=== PATIENT | female | born 1990 | race Caucasian/White ===

== ENCOUNTER 2019-05-16 19:30 | Inpatient (IN) | payer BC ==
[2019-05-19] MEDS ORDERED: Lidocaine 1% (PF) 30 ML VIAL SC PRN (18:56)
[2019-05-19] MEDS ORDERED: Ibuprofen 800 MG TAB PO PRN (18:56)
[2019-05-19] MEDS ORDERED: HYDROcodone/Acetaminophen 5/325 mg Tablet PO PRN ×2 (18:56)
[2019-05-19] MEDS ORDERED: Acetaminophen 500 MG TAB PO PRN (18:56)
[2019-05-19] MEDS ORDERED: Promethazine HCl 25 MG/ML VIAL IM PRN (18:56)
[2019-05-19] MEDS ORDERED: Butorphanol Tartrate 1 MG/ML VIAL SLOW IVP PRN (18:56)
[2019-05-19] MEDS ORDERED: Diphenoxylate HCl/Atropine Tablet PO PRN ×2 (18:56)
[2019-05-19] MEDS ORDERED: NS / Oxytocin 40 units/1000ml 1,000 ML IV PRN (18:56)
[2019-05-19] MEDS ORDERED: hydrALAZINE 20 MG/ML VIAL SLOW IVP PRN (18:56)
[2019-05-19] MEDS ORDERED: Carboprost 250 MCG/ML AMP IM PRN (18:56)
[2019-05-19] MEDS ORDERED: Ondansetron PF 4 MG/2 ML Vial IVP PRN (18:56)
[2019-05-19] MEDS ORDERED: Docusate 100 MG CAP PO PRN (18:56)
[2019-05-19] MEDS ORDERED: Misoprostol 200 MCG TAB PR PRN (18:56)
[2019-05-19] MEDS ORDERED: Methylergonovine 0.2 MG/ML VIAL IM PRN (18:56)
[2019-05-19] MEDS ORDERED: Zolpidem Tartrate 5 MG TAB PO PRN (18:56)
[2019-05-19] MEDS ORDERED: NS w/ Oxytocin 10 units 500 ML IV SCH ×2 (19:00)
--- NOTE | 2019-05-19 19:01 | PDOC.LDHP ---
Labor and Delivery H&P HPI: 28 y/o at 39 and 1/7 weeks presents for term medical induction of labor with dx of Oligohydramnios and new diagnosis of GHTN. Current gestational age (weeks): 39 Due date: 05/25/19 Grav: 1 Para: 0 Current complications: gestational hypertension, other Abnormal US findings: Yes (Oligohydramnios) Current medications: pre-jose vitamins Previous surgical history: none Social history: none - Physical Exam Vital signs reviewed and normal: yes General: NAD, resting Heart: RRR Lungs: nonlabored breathing Abdomen: NTTP Extremeties: no edema FHT: category 1 - Assessment L&D Assessment: medically indicated induction - Plan Plan: admit to L&D, cervical ripening
[2019-05-20 06:31] VITALS: BMI 25.4
[2019-05-20] MEDS: Lactated Ringer's 1,000 ML IV SCH ×4 (06:35→17:21)
[2019-05-20] MEDS ORDERED: FLU VACC QS2019-20(6MOS UP)/PF 60 MCG/0.5 ML SYRINGE IM ONE (06:45)
[2019-05-20 06:48] LABS: Hemoglobin 12.3 g/dL (12.0-16.0); Mean Corpuscular HGB CONC 34.2 g/dL (32.0-36.0); Mean Corpuscular Hemoglobin 32.2 pg (27.0-31.0); Mean Corpuscular Volume 94.3 fL (78.0-98.0); Mean Platelet Volume 8.7 fL (7.4-10.4); Platelet Count 196 thou/uL (130-400); RBC Distribution Width 11.8 % (11.5-14.5); Red Blood Cell (RBC) Count 3.81 mill/uL (4.20-5.40); White Blood Cell (WBC) Count 6.9 thou/uL (4.8-10.8)
[2019-05-20] MEDS: Misoprostol 100 MCG TAB VAG SCH ×3 (06:50→15:57)
[2019-05-20 07:34] LABS: Syphilis Antibody Nonreactive (Nonreactive); Syphilis Antibody Index 0.06 S/CO (<1.00 Non-Reactive)
[2019-05-20 07:51] LABS: HBSAg Index 0.16 S/CO (0-0.99); Hep B Surf Ag Non-Reactive S/CO (NonReactive)
[2019-05-20] MEDS ORDERED: Fentanyl 4 mcg/Bup 0.1% Cadd 100 ML ONE (12:13)
[2019-05-20] MEDS ORDERED: Promethazine HCl 25 MG/ML VIAL IM PRN ×5 (13:13→23:00)
[2019-05-20] MEDS ORDERED: ePHEDrine/0.9% NaCl/PF SYRINGE 50 mg/10 ml SLOW IVP PRN (13:13)
[2019-05-20] MEDS ORDERED: Lactated Ringer's 500 ML IV PRN (13:13)
[2019-05-20] MEDS ORDERED: diphenhydrAMINE 50 MG/ML VIAL IVP PRN ×4 (13:13→21:17)
[2019-05-20] MEDS ORDERED: Ondansetron PF 4 MG/2 ML Vial IVP PRN ×4 (13:13→23:00)
[2019-05-20] MEDS ORDERED: Naloxone HCl 0.4 mg/ml Vial IVP PRN ×8 (13:13→21:17)
[2019-05-20] MEDS ORDERED: Acetaminophen 325 MG TAB PO PRN (13:13)
[2019-05-20] MEDS ORDERED: Fentanyl 4 mcg/Bupivacaine 0.1% Cassette 100 ML EPIDURAL SCH (13:15)
[2019-05-20] MEDS ORDERED: Communication Order-Pharmacy FS SCH ×4 (13:15→21:30)
[2019-05-20] MEDS: Terbutaline Sulfate 1 MG/ML VIAL ONE (14:40)
--- NOTE | 2019-05-20 14:44 | PDOC.EVN ---
Event Note - Event Note Event Note: SAMM Rudolph [id number] LDR2 called to LDR 2 for FHR decels I arrived within 1 minute of call....FHRs were in low `100s Terb was given SQ per Dr Rajan Patient in knee-chest position. IVF bolus given. Cytotec given. Last exam was 9cm FHTs now in 120s. RUFINA in use Strip reviewed at bedside Satinder hidalgote to this location
[2019-05-20] MEDS ORDERED: Bupivacaine HCl 0.25%/Epi 0.0005/PF 10 ML VIAL FS ONE (18:00)
[2019-05-20] MEDS ORDERED: Azithromycin 500 MG VIAL ONE (19:10)
[2019-05-20] MEDS ORDERED: Azithromycin 500 MG in Sodium Chloride 0.9% 250 ML 250 ML IVPB SCH (19:15)
[2019-05-20] MEDS ORDERED: Bicitra 30 ML UDCUP PO SCH (19:15)
[2019-05-20] MEDS ORDERED: CEFAZOLIN 2 GM in Premix Bag 1 BAG IVPB SCH (19:15)
[2019-05-20] MEDS ORDERED: Ketorolac Tromethamine 30 MG/ML VIAL IVP PRN ×2 (19:18→19:38)
[2019-05-20] MEDS ORDERED: Promethazine HCl 25 MG SUPP PR PRN ×3 (19:18→21:17)
[2019-05-20] MEDS ORDERED: Naloxone HCl 0.4 mg/ml Vial IV PRN ×3 (19:18→21:17)
[2019-05-20] MEDS ORDERED: HYDROmorphone 2 MG/ML VIAL SLOW IVP PRN ×3 (19:19→21:17)
[2019-05-20] MEDS ORDERED: Ondansetron HCl/PF 4 MG/2 ML Vial IVP PRN ×2 (19:19→21:17)
[2019-05-20] MEDS ORDERED: Meperidine HCl/PF 25 MG/ML VIAL SLOW IVP PRN ×3 (19:19→21:17)
[2019-05-20] MEDS ORDERED: L&D-Morphine 4 MG/ML VIAL SLOW IVP PRN ×3 (19:19→21:17)
[2019-05-20] MEDS ORDERED: Ketorolac Tromethamine 30 MG/ML VIAL ONE (19:22)
[2019-05-20] MEDS ORDERED: Dexamethasone 4 mg/ml Vial ONE (19:22)
[2019-05-20] MEDS ORDERED: Ondansetron PF 4 MG/2 ML Vial ONE (19:22)
[2019-05-20] MEDS ORDERED: PHENYLEPHRINE-NS 100 MCG/ML 10 ML SYRINGE ONE (19:22)
[2019-05-20] MEDS ORDERED: MORPHINE 5 MG/10 ML PF VIAL ONE (19:22)
[2019-05-20] MEDS ORDERED: Oxytocin 10 UNITS/ML VIAL ONE (19:22)
[2019-05-20] MEDS ORDERED: ePHEDrine/0.9% NaCl/PF SYRINGE 50 mg/10 ml ONE (19:24)
[2019-05-20] MEDS ORDERED: Ketorolac Tromethamine 30 MG/ML VIAL IVP SCH ×3 (19:30→21:30)
[2019-05-20] MEDS ORDERED: Promethazine HCl 25 MG/ML VIAL ONE (19:41)
--- NOTE | 2019-05-20 20:35 | CON ---
DATE OF CONSULTATION: 05/20/2019 TIME OF EVALUATION: 2009 to 2013 hours. LOCATION: OR in Labor and Delivery. REQUESTING PHYSICIAN: Johan Rajan MD. REASON FOR INTRAOPERATIVE CONSULTATION: The patient with maternal left side inferior hysterotomy small extension. In brief I was asked by Dr. Rajan to come to the OR in Labor and Delivery for evaluation of a maternal left hysterotomy, inferior extension. I arrived to find the hysterotomy closed and baby being vigorous in the warmer being assessed. There was a 1.5 to 2 cm left inferior hysterotomy extension with a small bleed likely involving the inferior branch of the uterine artery/descending vaginal branch. I found the apex with an Allis clamp and noted it to be away from the bladder. I used Monocryl suture (#1) in a running locking fashion to close the extension back up to the hysterotomy. This was over sewed with a second layer for two-layer closure of the small extension. There was no other bleeding noted at this time, and this area did not involve the pelvic sidewall or bladder dome. After confirming hemostasis, I descrubbed and returned the case to Dr. Rajan who stated that he was comfortable with resuming care. Again, my time of involvement was 2009 to 2013 hours for over sewing of a left inferior hysterotomy small extension. No complications noted. Job ID: [id number]
[2019-05-20] MEDS ORDERED: Bisacodyl 10 MG SUPP PR PRN (23:00)
[2019-05-20] MEDS ORDERED: Zolpidem Tartrate 5 MG TAB PO PRN (23:00)
[2019-05-20] MEDS ORDERED: Lanolin Ointment 7 GM TUBE TOP PRN (23:00)
[2019-05-20] MEDS ORDERED: diphenhydrAMINE 25 MG CAP PO PRN (23:00)
[2019-05-20] MEDS ORDERED: NS / Oxytocin 40 units/1000ml 1,000 ML IV SCH (23:00)
[2019-05-20] MEDS ORDERED: Misoprostol 200 MCG TAB PR PRN (23:00)
[2019-05-20] MEDS ORDERED: hydrALAZINE 20 MG/ML VIAL SLOW IVP PRN (23:00)
[2019-05-20] MEDS ORDERED: Docusate Calcium (SURFAK) 240 MG CAP PO SCH (23:15)
[2019-05-20] MEDS ORDERED: Ibuprofen 800 MG TAB PO SCH (23:15)
[2019-05-21] MEDS: Ketorolac Tromethamine 30 MG/ML VIAL IVP PRN ×2 (00:14→06:04)
[2019-05-21] MEDS: Terbutaline Sulfate 1 MG/ML VIAL ONE (00:59)
[2019-05-21] MEDS ORDERED: hydrALAZINE 20 MG/ML VIAL SLOW IVP SCH (01:00)
[2019-05-21] MEDS: Lactated Ringer's 1,000 ML IV SCH (01:07)
[2019-05-21] MEDS: Misoprostol 100 MCG TAB VAG SCH ×2 (01:41→01:42)
[2019-05-21] MEDS ORDERED: Acetaminophen 1,000 MG in Premix Bag 1 BAG IVPB SCH (03:30)
[2019-05-21 06:19] LABS: Hemoglobin 10.3 g/dL (12.0-16.0); Mean Corpuscular Hemoglobin 32.1 pg (27.0-31.0); Mean Corpuscular Volume 94.4 fL (78.0-98.0); Mean Platelet Volume 8.5 fL (7.4-10.4); Platelet Count 148 thou/uL (130-400); RBC Distribution Width 11.7 % (11.5-14.5); Red Blood Cell (RBC) Count 3.21 mill/uL (4.20-5.40)
[2019-05-21] MEDS ORDERED: Adacel (T-DAP) 0.5 ML SYRINGE IM ONE (09:00)
[2019-05-21] MEDS ORDERED: Varicella virus, LIVE 0.5 ML VIAL SC ONE (09:00)
[2019-05-21] MEDS: HYDROcodone/Acetaminophen 5/325 mg Tablet PO PRN ×4 (09:00→22:24)
[2019-05-21] MEDS: Docusate Calcium (SURFAK) 240 MG CAP PO SCH ×2 (09:00→21:28)
[2019-05-21] MEDS ORDERED: Measles/Mumps/Rubella 10 MCG/0.5 ML VIAL SC ONE (09:00)
[2019-05-21] MEDS: Prenatal Vitamin 1 TAB PO SCH (09:00)
[2019-05-21] MEDS ORDERED: Ibuprofen 800 MG TAB PO SCH (14:30)
[2019-05-21] MEDS: Ibuprofen 800 MG TAB PO SCH ×2 (14:37→21:28)
[2019-05-21] MEDS: Simethicone Chewable 80 MG TAB PO PRN ×2 (14:39→21:28)
[2019-05-22] MEDS: Ibuprofen 800 MG TAB PO SCH ×3 (06:08→21:03)
[2019-05-22] MEDS: HYDROcodone/Acetaminophen 5/325 mg Tablet PO PRN ×3 (06:11→21:03)
[2019-05-22] MEDS: Docusate Calcium (SURFAK) 240 MG CAP PO SCH ×2 (09:09→21:02)
[2019-05-22] MEDS: Prenatal Vitamin 1 TAB PO SCH (09:09)
--- NOTE | 2019-05-22 16:03 | PDOC.PP ---
Post Progress Note Post Day #: 2 PO intake tolerated: yes Flatus: yes Ambulation: yes Vital Signs (12 hours) Temp Pulse Resp BP BP Pulse Ox 05/22/19 12:23 97.5 F L 84 20 129/75 05/22/19 08:25 98.1 F 87 20 124/71 97 05/22/19 04:15 98.0 F 72 18 127/78 Weight Weight 148 lb - Physical Examination General: NAD Cardiovascular: no m/r/g, RRR Respiratory: clear to auscultation bilaterally, non-labored breathing Abdominal: + bowel sounds, lochia Extremities: negative homans (B) Skin: CS incision dry & intact, no rash Neurological: no gross focal deficits Psychiatric: A&Ox3 Result Diagrams: 05/21/19 06:09 Additional Labs: Post Labs Blood Type O POSITIVE 05/20/19 07:31 Hep Bs Antigen Non-Reactive S/CO (NonReactive) 05/20/19 06:35
--- NOTE | 2019-05-22 16:04 | PDOC.PP ---
Post Progress Note Post Day #: 1 PO intake tolerated: yes Flatus: yes Ambulation: yes Vital Signs (12 hours) Temp Pulse Resp BP BP Pulse Ox 05/22/19 12:23 97.5 F L 84 20 129/75 05/22/19 08:25 98.1 F 87 20 124/71 97 05/22/19 04:15 98.0 F 72 18 127/78 Weight Weight 148 lb - Physical Examination General: NAD Cardiovascular: no m/r/g, RRR Respiratory: clear to auscultation bilaterally, non-labored breathing Abdominal: + bowel sounds, lochia, no distention Extremities: negative homans (B) Skin: CS incision dry & intact, no rash Neurological: no gross focal deficits Psychiatric: A&Ox3, normal affect Result Diagrams: 05/21/19 06:09 Additional Labs: Post Labs Blood Type O POSITIVE 05/20/19 07:31 Hep Bs Antigen Non-Reactive S/CO (NonReactive) 05/20/19 06:35
[2019-05-23] MEDS: Ibuprofen 800 MG TAB PO SCH (06:31)
[2019-05-23] MEDS: Prenatal Vitamin 1 TAB PO SCH (07:17)
[2019-05-23] MEDS: Docusate Calcium (SURFAK) 240 MG CAP PO SCH (07:17)
[2019-05-23] MEDS: HYDROcodone/Acetaminophen 5/325 mg Tablet PO PRN (07:18)
[2019-05-23 08:53] VITALS: BP 140/89; TEMP 98.3
--- NOTE | 2019-05-25 11:56 | OP ---
DATE OF PROCEDURE: 05/20/2019 TIME OF SERVICE: At 1959 hours, Central Standard Time. PREOPERATIVE DIAGNOSIS: Intrauterine at 39 weeks and 2 days with oligohydramnios and term induction of labor resulting in failure to descend and suspected cephalopelvic disproportion. POSTOPERATIVE DIAGNOSIS: Intrauterine at 39 weeks and 2 days with oligohydramnios and term induction of labor resulting in failure to descend and suspected cephalopelvic disproportion. PROCEDURE PERFORMED: Primary low-transverse section. FINDINGS: Viable male weighing 3204 g or 7 pounds 1 ounce, Apgars 5 and 9. QUANTITATIVE BLOOD LOSS: 854 mL. COMPLICATIONS: Extension of the hysterotomy inferiorly involving a small arterial bleed. CORN POPPER: Dr. Jeff Birch MD DETAILS OF THE PROCEDURE: The patient was consented and taken back to the operating room where spinal anesthesia was found to be adequate. She was then prepped and draped in the normal sterile fashion. A timeout was performed by the entire operative team. The incision was then marked with a marking pen tested using sharp pickups. An incision was then made with a scalpel. The incision was carried through the adipose tissue down to the underlying rectus fascia using both sharp dissection as well as cautery. Once the fascia was identified, it was incised in the midline and then the fascial incision was carried through in both lateral directions using sharp as well as cautery dissection techniques. Next, the superior aspect of the rectus fascia was grasped with 2 Leticia clamps, which was tented up and the rectus muscles were dissected off using blunt dissection as well as cautery dissection. Similarly, the inferior aspect of the fascial incision was grasped with 2 Leticia clamps, tented up and the rectus muscles were dissected off bluntly as well as sharply. Next, the rectus muscles were in the midline and the peritoneum identified. The peritoneum was then carefully grasped with 2 hemostats and entered sharply. The peritoneal incision was extended superiorly and inferiorly and bladder blade was placed in the lower abdomen. At this point, the uterus was identified and the bladder flap was then developed using pickups with teeth as well as Metzenbaum scissors in both lateral directions. The bladder flap was then dissected downwards using the classifier operator's finger as well as Metzenbaum scissors. The bladder blade was replaced. The lower uterine segment was then identified and entered sharply using a clean scalpel. The uterine incision was then dissected downwards until thin layer of muscle remained and this was entered bluntly using a hemostat to avoid any injury to the baby. The uterine incision was then stretched using two fingers in both lateral directions. An amniotomy was performed artificially using a hemostat and the baby was delivered using fundal pressure in a gentle fashion. Once out, the baby's mouth and nose were bulb suctioned, cord clamped and cut, and the baby was handed to waiting attendants. Next, the uterus was exteriorized, cleared of all clots and debris and the uterine incision was repaired with #1 Monocryl in a running locking fashion. A 2nd suture of the same type was used to obtain complete hemostasis at the uterine incision. The bladder flap was reapproximated using 3-0 Monocryl. Next, patient's left and right adnexa were inspected and appeared to be within normal limits. The posterior cul-de-sac was blotted dry and hemostasis assured. One more look at the uterine incision demonstrated hemostasis. Next, the uterus was replaced back within the abdomen. The peritoneum was reapproximated using 2-0 Monocryl without difficulty. The rectus muscles were then allowed to come back together and 0 chromic was used to aid in reapproximation of the muscle as necessary. The rectus fascia was then reapproximated in a running fashion using 0 Vicryl suture. The adipose tissue was then examined and appeared to be well approximated without any obvious separations. Finally, the skin was reapproximated with 3-0 Monocryl on a Duane needle without difficulty and Dermabond adhesive was applied to the skin. Once the glue was dry, the drapes were removed and the patient was transferred to an ambulatory bed where she was taken to recovery awake and in stable condition. Sponge, lap, and needle counts were correct x3. Job ID: [id number]
== END 2019-05-23 10:20 | disposition home or self-care (01) | DRG 787 ==
LOC: L&D 05-20 05:50 → 3SW 05-21 00:53
PROVIDERS: ADMIT Obstetrics & Gynecology; ATTEND Obstetrics & Gynecology
PROC: 10D00Z1 Extraction of Products of Conception, Low, Open Approach (ICD-10-PCS; principal; 2019-05-20)
PROC: 3E0P7VZ Introduction of Hormone into Female Reproductive, Via Natural or Artificial Opening (ICD-10-PCS; 2019-05-20)
PROC: 3E033VJ Introduction of Other Hormone into Peripheral Vein, Percutaneous Approach (ICD-10-PCS; 2019-05-20)
PROC: 3E02340 Introduction of Influenza Vaccine into Muscle, Percutaneous Approach (ICD-10-PCS; 2019-05-20)
PROC: 0UB90ZZ Excision of Uterus, Open Approach (ICD-10-PCS; 2019-05-20)
DX: O13.4 Gestational [pregnancy-induced] hypertension without significant proteinuria, complicating childbirth (principal); O41.03X0 Oligohydramnios, third trimester, not applicable or unspecified; N99.72 Accidental puncture and laceration of a genitourinary system organ or structure during other procedure; O76 Abnormality in fetal heart rate and rhythm complicating labor and delivery; O32.4XX0 Maternal care for high head at term, not applicable or unspecified; O33.9 Maternal care for disproportion, unspecified; Z3A.39 39 weeks gestation of pregnancy; Z37.0 Single live birth; Z23 Encounter for immunization; Y83.8 Other surgical procedures as the cause of abnormal reaction of the patient, or of later complication, without mention of misadventure at the time of the procedure
CPT/HCPCS: 36415; 85027; 86780; 86850; 86900; 86901; 87340; 88305; J0131; J0360; J0456; J0595; J0690; J1100; J1885; J2274; J2405; J2550; J2590; J3105; J7050